=== PATIENT | female | born 1960 | race Caucasian/White ===

== ENCOUNTER → 2017-02-14 | Outpatient (CLI) | payer BC ==
[~2017-02-14] MED LIST: ATOR10TA64 PO; ESTR0.624 PO; HYDR-4009 PO; HYDR25TA PO; IOHEXOL 300 MG/ML 100ml INJECTION ONE; NORE5TAB PO; NORMAL SALINE 100 ML ONE; OMEP40CA52 PO; ONDA4TAB7 PO; SALINE FLUSH 10ml SYRINGE ONE; VERA-8 PO; [UNRECOGNIZED DRUG - CODE] PO
--- NOTE | 2017-02-14 11:02 | DI ---
Indication: ITS.REASON: Z87.42 HISTORY OF ENDOMETRIOSIS, EPIGASTRIC PAIN PROCEDURE: CT ABD/PELVIS W/CONTRAST ONLY: Encounter: Initial Comparison: September 25, 2016 Technique: Axial CT images were performed through the abdomen and pelvis after the administration of intravenous contrast. Coronal and sagittal two-dimensional reformats. Automated Exposure Control and Iterative Reconstruction dose reducing techniques were utilized. Contrast: Omnipaque 300 100 mL Findings: The lung bases are grossly clear. The liver appears normal. The gallbladder is unremarkable. The spleen, pancreas and adrenal glands are within normal limits. No abdominal or pelvic lymphadenopathy. Bladder is moderately distended. No free air or free fluid. Uterus is surgically absent. No evidence of small or large bowel obstruction. Prior fecalization of the distal ileum is no longer seen. The small bowel appears normal. There is oral contrast to the mid transverse colon. Bone windows show no acute findings. Tiny fat-containing umbilical hernia measuring 1.3 cm in size. No additional ventral hernia noted. Impression: No acute disease process seen in the abdomen or pelvis. .
== END ==
LOC: IMA 08:18
PROVIDERS: ATTEND Surgery
DX: R10.13 Epigastric pain (principal); Z87.42 Personal history of other diseases of the female genital tract
CPT/HCPCS: 74177; J7050; Q9967